=== PATIENT | female | born 1960 | race Caucasian/White ===

== ENCOUNTER 2020-08-10 12:30 | Emergency (ER) | payer BC ==
[~2020-08-10] VITALS: Ht 154.9 cm; Wt 63.6 kg
[2020-08-10] MEDS ORDERED: SUMATRIPTAN25 MG PO (13:15)
[2020-08-10] MEDS ORDERED: SIMVASTATIN20 MG PO (13:15)
[2020-08-10] MEDS ORDERED: ESTRADIOL (13:18)
[2020-08-10] MEDS ORDERED: LEVOTHYROXIN75 MCG PO (13:19)
[2020-08-10] MEDS ORDERED: TOPIRAMATE50 MG PO (13:19)
[2020-08-10] MEDS ORDERED: OMEPRAZOLE20 MG PO (13:19)
[2020-08-10] MEDS ORDERED: AMLODIPINE BESYL5 MG PO (13:20)
[2020-08-10] MEDS ORDERED: VENLAFAXINE HCL75 M1 PO (13:22)
[2020-08-10] MEDS ORDERED: LOSARTAN POTASS50 MG PO (13:22)
[2020-08-10] MEDS ORDERED: ZOLPIDEM10 M1 PO (13:23)
[2020-08-10 13:39] LABS: URINE BILIRUBIN - DIPSTICK NEGATIVE (NEGATIVE); URINE BLOOD DIPSTICK NEGATIVE (NEGATIVE); URINE COLOR YELLOW; URINE GLUCOSE - DIPSTICK NEGATIVE (NEGATIVE); URINE KETONE NEGATIVE (NEGATIVE); URINE LEUK ESTERASE NEGATIVE (NEGATIVE); URINE NITRITE - DIPSTICK NEGATIVE (Negative); URINE PROTEIN - DIPSTICK NEGATIVE (NEG-TRACE); URINE SPECIFIC GRAVITY <=1.005; URINE UROBILINOGEN - DIPSTICK 0.2 E.U./dL (0.2)
[2020-08-10 14:02] LABS: HEMATOCRIT 39.2 % (37.0-47.0); HEMOGLOBIN 12.4 g/dl (12.0-16.0); IMMATURE GRANULOCYTES 0.2 % (0.0-5.0); MEAN CELL VOLUME 87.5 fL CALC (80.0-100.0); MEAN CORPUSCULAR HGB 27.7 pG CALC (26.0-32.0); MEAN CORPUSCULAR HGB CONC 31.6 g/dL CAL (32.0-36.0); NEUT# 3.05 thou/uL (2.00-7.15); RED BLOOD COUNT 4.48 mill/uL (4.20-5.60); RED CELL DISTRI WIDTH 13.2 % (11.5-15.5)
[2020-08-10 14:18] LABS: ALBUMIN 4.4 g/dL (3.2-5.0); BILIRUBIN, TOTAL 0.6 mg/dL (0.0-1.4); CREATININE 1.3 mg/dL (0.5-1.0); POTASSIUM 3.6 mmol/l (3.5-5.1); TOTAL PROTEIN 7.3 g/dL (6.3-8.2)
[2020-08-10 15:20] VITALS: BP 150/77
== END 2020-08-10 15:29 | disposition home or self-care (01) | DRG 392 ==
LOC: ED 12:30
DX: K59.00 Constipation, unspecified (principal); N28.9 Disorder of kidney and ureter, unspecified; I10 Essential (primary) hypertension; E03.9 Hypothyroidism, unspecified; E78.5 Hyperlipidemia, unspecified; K21.9 Gastro-esophageal reflux disease without esophagitis